=== PATIENT | female | born 1945 ===

== ENCOUNTER 2022-07-14 09:30 | Inpatient (IN) | payer OTHER ==
[~2022-07-14] VITALS: Ht 157.5 cm; Wt 80.3 kg
[2022-07-14] MEDS ORDERED: TOPROL XL50 M1 PO (14:38)
[2022-07-14] MEDS ORDERED: PROTONIX40 M1 PO (14:39)
[2022-07-14] MEDS ORDERED: PAXIL20 MG PO (14:39)
[2022-07-14] MEDS ORDERED: CARAF PO (14:39)
[2022-07-14] MEDS ORDERED: PEPCID PO (14:40)
[2022-07-14] MEDS ORDERED: SINGULAIR10 MG PO (14:41)
[2022-07-14] MEDS ORDERED: LISINOPRIL10 MG PO (14:49)
[2022-07-20] MEDS ORDERED: FAMOTIDINE20 MG (15:54)
[2022-07-20] MEDS ORDERED: VITAMIN D325 MC2 (15:54)
[2022-07-20] MEDS ORDERED: ATORVASTATIN CA40 MG (15:54)
[2022-07-20] MEDS ORDERED: TIZANIDINE HCL4 MG (15:55)
[2022-07-20] MEDS ORDERED: CARAFATE1 GM (15:56)
[2022-07-23] MEDS ORDERED: TRAM1TAB98 PO (14:45)
[2022-07-23] MEDS ORDERED: METOCLOPRAMIDE10 MG PO (14:45)
[2022-07-23] MEDS ORDERED: PEPCID20 MG PO (14:45)
[2022-07-23] MEDS ORDERED: INTESTINEX680 M1 PO (14:45)
== END 2022-07-23 17:12 | disposition home or self-care (01) | DRG 331 ==
LOC: SURH 07-19 09:30 → O/R 07-20 08:25 → SURH 07-20 15:21
PROVIDERS: ADMIT Colon & Rectal Surgery; ATTEND Colon & Rectal Surgery
PROC: 0WQF4ZZ Repair Abdominal Wall, Percutaneous Endoscopic Approach (ICD-10-PCS; 2022-07-20)
PROC: 0DJD8ZZ Inspection of Lower Intestinal Tract, Via Natural or Artificial Opening Endoscopic (ICD-10-PCS; 2022-07-20)
PROC: 0DTE4ZZ Resection of Large Intestine, Percutaneous Endoscopic Approach (ICD-10-PCS; principal; 2022-07-20 10:45)
PROC: 4A12X4Z Monitoring of Cardiac Electrical Activity, External Approach (ICD-10-PCS; 2022-07-21)
DX: K57.20 Diverticulitis of large intestine with perforation and abscess without bleeding (principal); Z20.822 Contact with and (suspected) exposure to COVID-19; K43.2 Incisional hernia without obstruction or gangrene

== ENCOUNTER 2022-07-24 14:11 | Inpatient (IN) | payer OTHER ==
[~2022-07-24] VITALS: Ht 152.4 cm; Wt 81.6 kg
[~2022-07-24 14:11] MED LIST: ATORVASTATIN CA40 MG; CARAF PO; CARAFATE1 GM; FAMOTIDINE20 MG; INTESTINEX680 M1 PO; LISINOPRIL10 MG PO; METOCLOPRAMIDE10 MG PO; PAXIL20 MG PO; PEPCID PO; PEPCID20 MG PO; PROTONIX40 M1 PO; SINGULAIR10 MG PO; TIZANIDINE HCL4 MG; TOPROL XL50 M1 PO; TRAM1TAB98 PO; VITAMIN D325 MC2
--- NOTE | 2022-07-24 14:40 | NUR ---
PACIENTE FEMENINA ALERTA Y ORIENTADA X3, REFIERE MUCHO DOLOR ABDOMINAL ESAU Y ELVIA Y VOMITOS MAS DE 5.
--- NOTE | 2022-07-24 16:16 | NUR ---
PTE EVALUADO POR MD [facility] [place] MED S EEDUC A APTE SOBRE EL MISMO Y REFIERE ENTENDER. MR NIELSEN EJECUTA ORDENES BAJO MEDIDAS ACEPTICAS. PTE PEND A RESULTADOS DE LAB Y CT.
[2022-08-06] MEDS ORDERED: LEVSIN0.125 MG PO ×4 (08:47→10:35)
[2022-08-06] MEDS ORDERED: ACIDOPHILUS1 EAC3 PO ×2 (08:54→10:35)
== END 2022-08-06 13:39 | disposition home or self-care (01) | DRG 354 ==
LOC: ER 14:11 → SURG 19:52 → SURH 07-26 15:54 → SURG 07-26 16:24
PROVIDERS: Surgery; ADMIT Colon & Rectal Surgery; ATTEND Colon & Rectal Surgery
PROC: BW21Y0Z Computerized Tomography (CT Scan) of Abdomen and Pelvis using Other Contrast, Unenhanced and Enhanced (ICD-10-PCS; 2022-07-24)
PROC: 02HV33Z Insertion of Infusion Device into Superior Vena Cava, Percutaneous Approach (ICD-10-PCS; 2022-07-25)
PROC: 3E0436Z Introduction of Nutritional Substance into Central Vein, Percutaneous Approach (ICD-10-PCS; 2022-07-25)
PROC: 0D9670Z Drainage of Stomach with Drainage Device, Via Natural or Artificial Opening (ICD-10-PCS; 2022-07-26)
PROC: 0DB68ZX Excision of Stomach, Via Natural or Artificial Opening Endoscopic, Diagnostic (ICD-10-PCS; 2022-07-29)
PROC: 0WQF0ZZ Repair Abdominal Wall, Open Approach (ICD-10-PCS; principal; 2022-08-03 13:00)
DX: K91.0 Vomiting following gastrointestinal surgery (principal); K43.0 Incisional hernia with obstruction, without gangrene; K56.609 Unspecified intestinal obstruction, unspecified as to partial versus complete obstruction; K57.20 Diverticulitis of large intestine with perforation and abscess without bleeding; K31.84 Gastroparesis; K29.70 Gastritis, unspecified, without bleeding; Y83.8 Other surgical procedures as the cause of abnormal reaction of the patient, or of later complication, without mention of misadventure at the time of the procedure; I11.9 Hypertensive heart disease without heart failure; Z20.822 Contact with and (suspected) exposure to COVID-19